=== PATIENT | male | born 1990 | race Caucasian/White ===

== ENCOUNTER 2017-03-05 01:15 | Emergency (ER) | payer SELFPAY ==
--- NOTE | 2017-03-05 02:02 | ED ---
Gladis Sanchez Rebecca, scribed for Mark Harrington MD on 03/05/17 at 0150 . Head Injury - HPI Summary HPI Summary: Pt is a 27 y/o M BIBA who presents to ED with a head laceration s/p head injury. Pt reports that he had drank 4-6 drinks tonight and at 0100 he slipped and fell. Denies any associated pain, ranking pain as 0/10. Negative LOC. Last Tetanus shot was 2 years ago. - History Of Current Complaint Chief Complaint: EDHeadInjury Stated Complaint: FALL HEAD LAC Time Seen by Provider: 03/05/17 01:40 Hx Obtained From: Patient Mechanism Of Injury: Fall From A Standing Position Severity Currently: None Pain Intensity: 0 Pain Scale Used: 0-10 Numeric Aggravating Factor(s): Other: - Nothing Alleviating Factor(s): Other: - Nothing Associated Signs And Symptoms: Other: - Laceration - Allergies/Home Medications Allergies/Adverse Reactions: Allergies Allergy/AdvReac Type Severity Reaction Status Date / Time No Known Allergies Allergy Verified 03/05/17 01:35 PMH/Surg Hx/FS Hx/Imm Hx Cardiovascular History: Reports: Hx Hypertension Psychiatric History: Reports: Other Psychiatric Issues/Disorders - Hx ADD Infectious Disease History: No Infectious Disease History: Denies: Traveled Outside the [place] in Last 30 Days - Family History Known Family History: Positive: Hypertension - Social History Alcohol Use: Daily Substance Use Type: Reports: None Smoking Status (MU): Never Smoked Tobacco Review of Systems Positive: Other - Head laceration s/p fall Neurological: Other - NEGATIVE: LOC All Other Systems Reviewed And Are Negative: Yes Physical Exam Triage Information Reviewed: Yes Vital Signs On Initial Exam: Initial Vitals BP 136/83 03/05/17 01:31 Vital Signs Reviewed: Yes Appearance: Positive: Well-Appearing Skin: Positive: Warm, Other - occipital head lac Head/Face: Positive: Other - occipital head lac Eyes: Positive: EOMI, DAVID Neck: Positive: Supple Respiratory/Lung Sounds: Positive: Clear to Auscultation, Breath Sounds Present Cardiovascular: Positive: RRR Abdomen Description: Positive: Soft Musculoskeletal: Positive: Strength/ROM Intact Neurological: Positive: Alert, Oriented to Person Place, Time, Normal Gait Psychiatric: Positive: Affect/Mood Appropriate - Junito Coma Scale Coma Scale Total: 15 Procedures - Laceration/Wound Repair 1 Location: head Anesthesia: 1.0%, Lido, Epi Length, Depth and Shape: 4 cm - superficial Irrigated w/ Saline (ccs): 200 - normal saline Closure: Luna #__ - 4 Diagnostics - Vital Signs Vital Signs Temp Pulse Resp BP Pulse Ox 03/05/17 01:33 97 F 83 16 136/83 98 03/05/17 01:32 84 98 03/05/17 01:31 136/83 - Laboratory Lab Statement: Any lab studies that have been ordered have been reviewed, and results considered in the medical decision making process. - CT Brain CT CT Interpretation: No Acute Changes - No definite acute hemorrhage, mass or acute territorial infarct. Exam limited by motion artifact. No visible skull fracture. Clear visualized paranasal sinuses. Visualized mastoid air cells clear. CT Interpretation Completed By: Radiologist Head Injury Course/Dx Assessment/Plan: Pt is a 27 y/o M BIBA who presents to ED with a head laceration s/p head injury. Pt reports that he had drank 4-6 drinks tonight and at 0100 he slipped and fell. Denies any associated pain, ranking pain as 0/10. Negative LOC. Last Tetanus shot was [address] reveals no acute findings. Laceration repair performed by KENYA Lopes (see procedure note). Pt will be D/C to home with Dx of hea dinjury and a follow up with his PCP for staple removal. He understands and agrees. Elevated BP noted and advised to f/u with PCP. - Diagnoses Provider Diagnoses: Head injury Discharge - Discharge Plan Condition: Stable Disposition: HOME Patient Education Materials: Head Injury (ED), Staple Care (ED) Referrals: Non Staff,Doctor [Primary Care Provider] - 7 Days (Follow up in 7 days for staple removal. ) The documentation as recorded by the Gladis hardy Rebecca accurately reflects the service I personally performed and the decisions made by me, Mark Harrington MD.
[2017-03-05 02:49] VITALS: BP 147/97
--- NOTE | 2017-03-05 09:41 | RAD ---
Indication: Fall with small laceration on upper back of head. Comparison: No relevant prior exams available on the [facility] [facility] [place]. Technique: Noncontrast CT vertex of skull through foramen magnum. Report: The sulci, ventricles, and basal cisterns are normal for age. Hemphill matter white matter differentiation is preserved without evidence for edema. No intra or extra axial hemorrhage is detected. Unremarkable orbital contents. Negative for calvarial or skull base fracture. Mild RIGHT posterior scalp edema/infiltrative hematoma without significant loculated hematoma. No visualized subcutaneous emphysema. Clear visualized paranasal sinuses and RIGHT mastoid air spaces. LEFT mastoid effusions. IMPRESSION: No evidence for traumatic brain injury or acute intracranial process.
== END 2017-03-05 02:57 | disposition home or self-care (01) ==
LOC: EDBD → ED 01:15
DX: S09.90XA Unspecified injury of head, initial encounter (principal); W01.0XXA Fall on same level from slipping, tripping and stumbling without subsequent striking against object, initial encounter; Y92.9 Unspecified place or not applicable; S01.01XA Laceration without foreign body of scalp, initial encounter
CPT/HCPCS: 12001; 70450; 99283